=== PATIENT | male | born 1960 | race Caucasian/White ===

== ENCOUNTER 2021-11-24 15:21 | Emergency (ER) | payer OTHER ==
[~2021-11-24] VITALS: Ht 172.7 cm; Wt 80.0 kg
[2021-11-24 15:22] VITALS: BP 129/78
[2021-11-24] MEDS ORDERED: ONDANSETRON HCL 4MG/2ML INJ IV STA (15:57)
[2021-11-24] MEDS ORDERED: MAGNESIUM/ALUMINUM HYDROXIDE/SIMETHICONE 30ML UDC PO STA (15:57)
[2021-11-24] MEDS ORDERED: VISCOUS LIDOCAINE 2% 15 ML UDC PO STA (15:57)
[2021-11-24] MEDS ORDERED: FAMOTIDINE 20MG/2ML VIAL IV STA (15:57)
[2021-11-24] MEDS ORDERED: SODIUM CHLORIDE 0.9% 1,000 ML IV ONE (16:00)
== END 2021-11-24 16:23 | disposition left against medical advice (07) ==
LOC: ER 15:21
DX: R10.13 Epigastric pain (principal); R11.0 Nausea; E78.00 Pure hypercholesterolemia, unspecified
CPT/HCPCS: 93005; 99283; J7030

== ENCOUNTER 2024-02-18 00:07 | Inpatient (IN) | payer SELFPAY ==
[~2024-02-18] VITALS: Ht 172.7 cm; Wt 86.6 kg
[2024-02-18 01:29] LABS: BASOPHILS % 0.9 % (0.0-2.0); EOSINOPHILS % 1.5 % (0.0-5.0); HEMATOCRIT. 41.6 % (42.0-52.0); HEMOGLOBIN. 14.3 g/dL (14.0-18.0); LYMPHOCYTES % 15.1 % (20.0-50.0); MEAN CORPUSCULAR HEMOGLOBIN 29.6 pg (28.0-32.0); MEAN CORPUSCULAR HGB CONC 34.4 g/dL (31.0-37.0); MEAN CORPUSCULAR VOLUME 86.2 fL (80.0-94.0); MEAN PLATELET VOLUME 9.2 fl (7.4-10.4); MONOCYTES % 5.6 % (2.0-8.0); NEUTROPHILS % 76.9 % (40.0-76.0); PLATELET 158 x1000/uL (130-400); RED BLOOD CELL COUNT 4.83 mill/uL (4.7-6.1); RED CELL DISTRIBUTION WIDTH 13.9 % (11.6-14.6); WHITE BLOOD COUNT 11.2 x1000/uL (4.5-11.0)
[2024-02-18 01:37] LABS: CHLORIDE 100 mEq/L (98-107); POTASSIUM 4.2 mEq/L (3.5-5.1); SODIUM 134 mEq/L (136-145)
[2024-02-18 01:38] LABS: CALCIUM 9.2 mg/dL (8.7-10.4); CARBON DIOXIDE 26 mEq/L (21-32)
[2024-02-18 01:43] LABS: CREATININE 1.6 mg/dL (0.6-1.3); GLUCOSE 167 mg/dL (70-105); UREA NITROGEN BLOOD 16 mg/dL (9-23)
[2024-02-18 01:51] LABS: TROPONIN I HIGH SENSITIVITY < 4 ng/L (3.0-53)
[2024-02-18] MEDS: LACTATED RINGERS IV ONE (06:09)
[2024-02-18 06:49] LABS: IRON 29 ug/dL (65-175)
[2024-02-18 06:50] LABS: TRIGLYCERIDE 109 mg/dL (0-150)
[2024-02-18 06:51] LABS: CREATINE KINASE MB FRACTION < 0.5 ng/mL (0.5-3.6); LDL CHOLESTEROL 109 mg/dL (5-100)
[2024-02-18 06:52] LABS: CHOLESTEROL 158 mg/dL (<200); CREATINE KINASE 61 IU/L (46-171); HDL CHOLESTEROL 32 mg/dL (>55); TOTAL IRON BINDING CAPACITY 288 ug/dl (250-425)
[2024-02-18 06:55] LABS: T4 FREE 1.12 ng/dL (0.89-1.76); THYROID STIMULATING HORMONE 1.75 uIU/mL (0.55-4.78)
[2024-02-18 07:01] LABS: VITAMIN B12 SERUM 465 pg/mL (211-911)
[2024-02-18 07:16] LABS: ETHANOL BLOOD < 10 mg/dL (<10)
[2024-02-18 08:34] LABS: CLARITY URINE CLEAR (CLEAR); COLOR URINE DARK YELLOW (YELLOW); GLUCOSE URINE NEGATIVE (NEGATIVE); KETONES URINE NEGATIVE (NEGATIVE); LEUKOCYTE ESTERASE URINE NEGATIVE (NEGATIVE); NITRITE URINE NEGATIVE (NEGATIVE); OCCULT BLOOD URINE NEGATIVE (NEGATIVE); PH URINE 5.5 (4.5-8.0); PROTEIN URINE 1+ (NEGATIVE); SPECIFIC GRAVITY URINE 1.015 (1.005-1.030)
[2024-02-18 08:38] LABS: FOLIC ACID (FOLATE) SERUM 10.62 ng/mL (>5.38)
[2024-02-18 08:49] LABS: MUCUS URINE TRACE /lpf (NONE/TRACE)
[2024-02-18 08:50] LABS: BACTERIA URINE TRACE; SQUAMOUS EPITHELIAL CELL URINE RARE /lpf (RARE/1+); WBC URINE 0-2 /hpf (0-2)
[2024-02-18 08:51] LABS: RBC URINE NONE SEEN /hpf (0-2)
[2024-02-18 09:15] LABS: *AMPHETAMINES SCREEN URINE NEGATIVE (NEGATIVE); *BARBITURATES SCREEN URINE NEGATIVE (NEGATIVE); *BENZODIAZEPINES SCREEN URINE NEGATIVE (NEGATIVE); *COCAINE SCREEN URINE NEGATIVE (NEGATIVE)
[2024-02-18 09:16] LABS: CANNABINOID URINE SCREEN NEGATIVE (NEGATIVE); ECSTASY MDMA SCREEN URINE NEGATIVE (NEGATIVE); METHADONE URINE SCREEN NEGATIVE (NEGATIVE); OPIATES URINE SCREEN NEGATIVE (NEGATIVE); PHENCYCLIDINE URINE SCREEN NEGATIVE (NEGATIVE)
[2024-02-18] MEDS ORDERED: NITROGLYCERIN 0.4MG TABLET SL SL PRN (10:45)
[2024-02-18] MEDS ORDERED: DOCUSATE SODIUM 100MG CAPSULE PO PRN (10:45)
[2024-02-18] MEDS ORDERED: KETOROLAC 15MG/ML VIAL IV PRN (10:45)
[2024-02-18] MEDS ORDERED: ACETAMINOPHEN 325MG TABLET PO PRN ×2 (10:45)
[2024-02-18] MEDS ORDERED: ZOLPIDEM TARTRATE 5MG TABLET PO PRN (10:45)
[2024-02-18] MEDS ORDERED: CLONIDINE 0.1MG TABLET PO PRN (10:45)
[2024-02-18] MEDS ORDERED: MAGNESIUM/ALUMINUM HYDROXIDE/SIMETHICONE 30ML UDC PO PRN (10:45)
[2024-02-18] MEDS ORDERED: IPRATROPIUM/ALBUTEROL 0.5-3(2.5)MG/3ML NEB NEB PRN (10:45)
[2024-02-18] MEDS ORDERED: ONDANSETRON HCL 4MG/2ML INJ IV PRN (10:45)
[2024-02-18] MEDS ORDERED: GUAIFENESIN 200MG/10ML SUGAR FREE UDC PO PRN (10:45)
[2024-02-18] MEDS: LACTATED RINGERS 1,000 ML IV SCH (11:38)
[2024-02-18] MEDS: FAMOTIDINE 20MG TABLET PO SCH (11:38)
[2024-02-18] MEDS: ENOXAPARIN 40MG/0.4ML SYR SUBCUT SCH (11:38)
[2024-02-18 16:30] VITALS: BP 106/63; PULSE 82; RESP 18; TEMP 100.2
[2024-02-18] MEDS ORDERED: ATOR20TA PO (18:07)
[2024-02-18] MEDS ORDERED: MELO-104 PO (18:07)
[2024-02-18] MEDS ORDERED: LEVO125T8 PO (18:07)
[2024-02-18] MEDS ORDERED: PNEUMOCOCCAL 23-VAL P-SAC VAC 0.5 ML IM ONE (18:45)
[2024-02-18 20:00] VITALS: BP 112/60; PULSE 85; RESP 18; TEMP 98.7
[2024-02-18 22:27] LABS: CREATINE KINASE MB FRACTION 0.7 ng/mL (0.5-3.6); TROPONIN I HIGH SENSITIVITY 5 ng/L (3.0-53)
[2024-02-18 22:28] LABS: CREATINE KINASE 58 IU/L (46-171)
[2024-02-19 00:15] VITALS: BP 97/54; PULSE 83; RESP 18; TEMP 98.4
[2024-02-19 04:13] VITALS: BP 94/42; PULSE 81; RESP 18; TEMP 98.5
[2024-02-19 06:49] LABS: CHLORIDE 102 mEq/L (98-107); POTASSIUM 3.9 mEq/L (3.5-5.1); SODIUM 135 mEq/L (136-145)
[2024-02-19 06:53] LABS: CALCIUM 8.8 mg/dL (8.7-10.4); CARBON DIOXIDE 26 mEq/L (21-32)
[2024-02-19 06:55] LABS: CREATINE KINASE MB FRACTION < 0.5 ng/mL (0.5-3.6); TROPONIN I HIGH SENSITIVITY 5 ng/L (3.0-53)
[2024-02-19 06:58] LABS: ALANINE AMINOTRANSFERASE 43 IU/L (10-49); CREATININE 1.2 mg/dL (0.6-1.3)
[2024-02-19 06:59] LABS: GLUCOSE 117 mg/dL (70-105); UREA NITROGEN BLOOD 12 mg/dL (9-23)
[2024-02-19 07:00] LABS: ALBUMIN 3.6 g/dL (3.2-4.8); ASPARTATE AMINOTRANSFERASE 47 IU/L (<34); CREATINE KINASE 62 IU/L (46-171)
[2024-02-19 07:01] LABS: BILIRUBIN TOTAL 0.8 mg/dL (0.1-1.0); PHOSPHORUS 2.3 mg/dL (2.5-4.9); PROTEIN TOTAL 6.4 g/dL (6.0-8.3)
[2024-02-19 07:35] LABS: BASOPHILS % 0.8 % (0.0-2.0); EOSINOPHILS % 9.6 % (0.0-5.0); HEMATOCRIT. 36.8 % (42.0-52.0); HEMOGLOBIN. 12.4 g/dL (14.0-18.0); LYMPHOCYTES % 28.1 % (20.0-50.0); MEAN CORPUSCULAR HEMOGLOBIN 29.4 pg (28.0-32.0); MEAN CORPUSCULAR HGB CONC 33.7 g/dL (31.0-37.0); MEAN CORPUSCULAR VOLUME 87.1 fL (80.0-94.0); MEAN PLATELET VOLUME 11.1 fl (7.4-10.4); MONOCYTES % 6.1 % (2.0-8.0); NEUTROPHILS % 55.4 % (40.0-76.0); PLATELET 136 x1000/uL (130-400); RED BLOOD CELL COUNT 4.23 mill/uL (4.7-6.1); RED CELL DISTRIBUTION WIDTH 14.1 % (11.6-14.6); WHITE BLOOD COUNT 6.2 x1000/uL (4.5-11.0)
[2024-02-19 08:00] VITALS: BP 100/56; PULSE 68; RESP 18; TEMP 97
[2024-02-19] MEDS: ASPIRIN 81MG EC TABLET PO SCH (08:58)
[2024-02-19] MEDS ORDERED: POTASSIUM-SODIUM PHOSPHATE POWDER PACKET PO NR (09:15)
[2024-02-19] MEDS ORDERED: IOHEXOL-350 100 ML BOTTLE ONE (11:44)
[2024-02-19 12:00] VITALS: BP 110/58; PULSE 71; RESP 18; TEMP 97
[2024-02-19 14:11] VITALS: BP 110/74; PULSE 71; TEMP 97.2; O2SAT 98
== END 2024-02-19 14:35 | disposition home or self-care (01) | DRG 204 ==
LOC: ER 00:07 → 7WST 04:43
PROVIDERS: ADMIT Internal Medicine; ATTEND Internal Medicine
DX: R55 Syncope and collapse (principal); N17.0 Acute kidney failure with tubular necrosis; I10 Essential (primary) hypertension; E87.1 Hypo-osmolality and hyponatremia; R79.89 Other specified abnormal findings of blood chemistry; Z79.899 Other long term (current) drug therapy
CPT/HCPCS: 36415; 71275; 80048; 80053; 80061; 80305; 80320; 81003; 82550; 82553; 82607; 82746; 83036; 83540; 83550; 83735; 83880; 84100; 84439; 84443; 84484; 85025; 85379; 93005; 93970; 99285; J1650; Q9967; G0480